=== PATIENT | female | born 1950 | race African-American/Black ===

== ENCOUNTER → 2017-12-09 | Outpatient (CLI) | payer MEDICARE, BC, OTHER ==
[~2017-12-09] MED LIST: ADVIL PM CAPLE1 EACH PO; ANASTROZOLE1 MG PO; CELEXA20 MG PO; COZAAR100 MG PO
== END ==
LOC: M.RAD 13:48
DX: R92.8 Other abnormal and inconclusive findings on diagnostic imaging of breast (principal); D05.12 Intraductal carcinoma in situ of left breast